=== PATIENT | female | born 1970 | race Caucasian/White ===

== ENCOUNTER → 2016-10-08 | Day surgery (SDC) | payer BC ==
[2016-10-01 14:33] VITALS: BMI 23.0
[~2016-10-08] VITALS: Ht 165.1 cm; Wt 63.6 kg
[~2016-10-08] MED LIST: AMOX500C3 PO; BUPR75TA8 PO; CALC-437 PO; CLC/300 PO; CLR10 PO; DOXY100C76 PO; FERR1TAB13 PO; FLUT1SPR12 NEB; LEVO150T9 PO; LEVO200T6 PO; LIDOCAINE HCL 2% 2 ML VIAL (20MG/ML) ONE; METH1TAB5 PO; MIDAZOLAM HCL 1 MG/ML 2ML VIAL ONE; MULT-506 PO; ONDANSETRON INJ 2 MG/ML 2 ML VIAL ONE; OXYB5TAB74 PO; PRLSR20 PO; PROPOFOL IV EMULSION 10 MG/ML 20 ML VIAL IV ONE; SODIUM CHLORIDE 0.9% 500ML 500 ML IV ONE; SUCR5SUS PO; SULF800T23 PO; ZINC1CAP
[2016-10-08 10:12] VITALS: Ht 165.1 cm; Wt 63.6 kg
--- NOTE | 2016-10-08 10:40 | Endo History and Physical ---
History & Physical Date of Service: Oct 08, 2016. Chief Complaint: GASTRIC ULCER Referring Physician: DR. OLSEN History of Present Illness gastric ulcer, s/p RYGB Past Medical History History Of Paralysis, Cancer, Hypertension, Thyroid Disease Past Surgical History Hx Cardiac Surgery: No Hx Internal Defibrillator: No Hx Pacemaker: No Hx Abdominal Surgery: Yes (GASTRIC BYPASS FEBRUARY 2016) Hx of Implantable Prosthesis: No Hx Post-Op Nausea and Vomiting: No Hx Cancer Surgery: No (Hodgkins lymphoma) Hx Thoracic Surgery: Yes Hx Orthopedic: Yes (RT ANKLE FX REPAIR) Hx Urinary Tract Surgery: No Family History None Social History Smoking Status: Former Smoker Hx Substance Use: No Hx Alcohol Use: No Allergies Coded Allergies: Hydromorphone (Verified Allergy, Severe, RESP. FAILURE, 10/08/16) Oxycodone (Verified Allergy, Mild, pruritis, 10/08/16) Adhesives (Verified Allergy, Unknown, SKIN IRRITATION AND BLISTERING, ) Levetiracetam (Verified Allergy, Unknown, "SKIN CRAWLING", 10/08/16) Morphine (Verified Adverse Reaction, Unknown, VOMITING, 09/10/16) Current Medications Reported Home Medications Medications Dose Route/Sig Max Daily Dose Days Date Category Multivitamin (Multivitamins) Tab 1 Tab PO QAM 10/01/16 Reported Wellbutrin (Bupropion Hcl) 75 Mg Tab 75 Mg PO QAM 10/01/16 Reported Methenamine Hippurate 1 Gm Tab 1 Tab PO QAM 10/01/16 Reported Prilosec (Omeprazole) 20 Mg Capcr 20 Mg PO QAM 10/01/16 Reported Flonase Allergy Relief Ch (Fluticasone Propionate (Nasal)) 50 Mcg/Act Spr 2 [place] NEB BID PRN 07/29/16 Reported Ditropan (Oxybutynin Chloride) 5 Mg Tab 5 Mg PO QAM 07/29/16 Reported Carafate (Sucralfate) 1 Gm/10 Ml Susp 1 Gm PO QID 07/29/16 Reported Claritin (Loratadine) 10 Mg Tab 10 Mg PO QAM PRN 07/29/16 Reported Calcium Carbonate (Calcium Carbonate (Antacid)) 648 Mg Tab 1 Tab PO QAM 07/29/16 Reported Kp Ferrous Sulfate (Ferrous Sulfate) 325 Mg Tab 1 Tab PO QAM 30 07/29/16 Reported Levothyroxine Sodium 200 Mcg Tab 200 Mcg PO QAM 11/26/12 Reported Vital Signs Weight (Kilograms): 63.64 Height (Feet): 5 Height (Inches): 5 Date Time Temp Pulse Resp B/P Pulse Ox O2 Delivery O2 Flow Rate FiO2 10/08/16 10:23 36.6 102 18 127/57 99 Room Air Physical Exam General Appearance: no apparent distress Respiratory/Chest: Auscultation: breath sounds normal Cardiovascular: Heart Auscultation: normal S1 Abdomen: Inspection & Palpation: soft Assessment and Plan H/o gastric ulcer, s/p RYGB - EGD
--- NOTE | 2016-10-08 10:58 | GI REPORT ---
Procedure Date: 10/08/2016 10:21 AM Procedure: Upper GI endoscopy Indications: Follow-up of gastrojejunal ulcer Medicines: See the Anesthesia note for documentation of the administered medications Complications: No immediate complications. Estimated Blood Loss: Estimated blood loss: none. Procedure: Pre-Anesthesia Assessment: - ASA Grade Assessment: III - A patient with severe systemic disease. After obtaining informed consent, the endoscope was passed under direct vision. Throughout the procedure, the patient's blood pressure, pulse, and oxygen saturations were monitored continuously. The scope was introduced through the mouth, and advanced to the second part of duodenum. The upper GI endoscopy was accomplished without difficulty. The patient tolerated the procedure well. Findings: The examined esophagus was normal. 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 The anastamosis was friable, with multiple mauro, and with contact bleeding. There was no ulcer at the anastamosis. The anastamosis was widely patent. The mucosa of the stomach pouch was normal. The small intestine was normal. Recommendation: - Discharge patient to home. Continue PPI therapy, d/c carafate. Jeremiah Jeong M.D. Jeremiah Jeong MD 10/08/2016 10:58:35 AM This report has been signed electronically. Note Initiated On: 10/08/2016 10:21 AM I attest to the content of the Intraoperative Record and orders documented therein, exceptions below
--- NOTE | 2016-10-08 11:00 | Discharge Instructions ---
Endoscopy Patient Instructions Date / Procedure(s) Performed Oct 08, 2016. EGD Allergy Information Coded Allergies: Hydromorphone (Verified Allergy, Severe, RESP. FAILURE, 10/08/16) Oxycodone (Verified Allergy, Mild, pruritis, 10/08/16) Adhesives (Verified Allergy, Unknown, SKIN IRRITATION AND BLISTERING, ) Levetiracetam (Verified Allergy, Unknown, "SKIN CRAWLING", 10/08/16) Morphine (Verified Adverse Reaction, Unknown, VOMITING, 09/10/16) Discharge Date / Findings Oct 08, 2016. Healed gastric ulcer Provider Instructions Activity Restrictions - No exercising or heavy lifting for 24 hours. - Do not drink alcohol the day of the procedure. - Do not drive a car or operate machinery until the day after the procedure. - Do not make any important decisions or sign important papers in 24 hours after the procedure. Following Day: - Return to full activity which may include returning to work/school. Diet Start your diet with liquids and light foods (jello, soup, juice, toast). Then eat your usual diet if not nauseated. Treatment For Common After Affects For mild abdominal pain, bloating, or excessive gas: - Rest - Eat lightly - Lie on right side Follow-Up Information Follow-up with DR. OLSEN as scheduled Anesthesia Information What You Should Know You have had a procedure that required some medicine to reduce anxiety and discomfort. This treatment is called moderate sedation. After receiving the treatment, you may be sleepy, but you will be able to breathe on your own. The effects of the treatment may last for several hours. Follow these instructions along with Activity/Diet recommendations noted above: * Do NOT do anything where dizziness or clumsiness would be dangerous. * Rest quietly at home today, then you can be up and about tomorrow. * Have a responsible person stay with you the rest of today. * You may have had an I.V. today. If so, you may take the dressing off later today. Recommendations Call your doctor if: * Trouble breathing * Continuous vomiting for more than 24 hours * Temperature above 101 degrees * Severe abdominal pain or bloating * Pain not relieved by pain medicine ordered * There is increased drainage or redness from any incision * A large amount of rectal bleeding greater than 2-3 tablespoons. (If you had a polyp/s removed or have hemorrhoids, a small amount of blood - from the rectum is to be expected.) * You have any unanswered questions or concerns. IN THE EVENT OF A SERIOUS EMERGENCY, GO TO THE NEAREST EMERGENCY ROOM Your discharge instructions were prepared by provider Jeremiah Hurtado. Patient Instructions Signature Page Kristen Hernadez Patient (or Guardian) Signature/Date: I have read and understand the instructions given to me by my caregivers. Caregiver/RN/Doctor Signature/Date: The above-named patient and/or guardian has received patient instructions on this date. + Original Patient Signature Page (only) stays with chart. Please make copy for patient.
--- NOTE | 2016-10-08 11:24 | Anesthesiology Progress Note ---
Anesthesia Post Op Note Date & Time Oct 08, 2016 at 11:24 Vital Signs Pain Intensity: 0 Vital Signs Past 12 Hours Date Time Temp Pulse Resp B/P Pulse Ox O2 Delivery O2 Flow Rate FiO2 10/08/16 11:12 103 18 90/51 99 Room Air 10/08/16 10:57 116 18 91/47 100 Mask 5 10/08/16 10:23 36.6 102 18 127/57 99 Room Air Notes Mental Status: alert / awake / arousable, participated in evaluation Pt Amnestic to Procedure: Yes Nausea / Vomiting: adequately controlled Pain: adequately controlled Airway Patency, RR, SpO2: stable & adequate BP & HR: stable & adequate Hydration State: stable & adequate Anesthetic Complications: no major complications apparent
[2016-10-08 11:27] VITALS: BP 94/54; PULSE 92; O2SAT 100
== END | disposition home or self-care (01) ==
LOC: C.GI 09:58
PROVIDERS: ATTEND Internal Medicine Gastroenterology
DX: Z09 Encounter for follow-up examination after completed treatment for conditions other than malignant neoplasm (principal); K28.3 Acute gastrojejunal ulcer without hemorrhage or perforation; K31.89 Other diseases of stomach and duodenum; I10 Essential (primary) hypertension; E07.9 Disorder of thyroid, unspecified; Z87.891 Personal history of nicotine dependence; Z88.5 Allergy status to narcotic agent; Z88.8 Allergy status to other drugs, medicaments and biological substances

== ENCOUNTER → 2017-02-24 | Outpatient (CLI) | payer BC ==
[~2017-02-24] MED LIST changes: -BUPR75TA8 PO; -LEVO200T6 PO; -LIDOCAINE HCL 2% 2 ML VIAL (20MG/ML) ONE; -METH1TAB5 PO; -MIDAZOLAM HCL 1 MG/ML 2ML VIAL ONE; -ONDANSETRON INJ 2 MG/ML 2 ML VIAL ONE; -PROPOFOL IV EMULSION 10 MG/ML 20 ML VIAL IV ONE; -SODIUM CHLORIDE 0.9% 500ML 500 ML IV ONE; -SUCR5SUS PO
--- NOTE | 2017-03-08 07:35 | CODING QUERY NO DIAGNOSIS ---
TREATMENT RENDERED WITHOUT A DIAGNOSIS Dr. Oneal, To promote full compliance with coding requirements relating to patient care, physician participation is requested in all cases of icebox worker uncertainty. Please assist us with providing a diagnosis/symptom for the test(s) below: A diagnosis/symptom was not documented on your Order. A valid diagnosis/symptom is required to bill all insurances. Please remember that we are unable to code a diagnosis of rule out, probable, possible, questionable, or suspected. Tests that require a diagnosis: * C DIFF REAL TIME PCR DIAGNOSIS: DATE OF SERVICE: 02/24/17 Provider Signature: Date: Thank you [facility] Information Management Once completed, please kindly fax back to [phone] For questions please call [phone]
== END | disposition home or self-care (01) ==
LOC: C.LABBC 11:05
PROVIDERS: ATTEND Emergency Medicine
DX: R19.7 Diarrhea, unspecified (principal)

== ENCOUNTER → 2017-05-10 | Outpatient (CLI) | payer BC ==
[~2017-05-10] MED LIST changes: -SULF800T23 PO
== END | disposition home or self-care (01) ==
LOC: C.LABSPEC 16:58
PROVIDERS: ATTEND Nurse Practitioner Family
DX: N31.9 Neuromuscular dysfunction of bladder, unspecified (principal)